=== PATIENT | male | born 1960 | race Hispanic/Latino ===

== ENCOUNTER 2022-12-09 10:30 | Observation (INO) | payer SELFPAY ==
[2022-12-09] MEDS ORDERED: Ondansetron PF 4 MG/2 ML Vial ONE ×2 (11:14→14:38)
[2022-12-09] MEDS ORDERED: Acetaminophen 500 MG TAB ONE (11:14)
[2022-12-09] MEDS ORDERED: Ketorolac Tromethamine 30 MG/ML VIAL ONE ×2 (11:14→14:38)
[2022-12-09] MEDS ORDERED: Cefepime 2 GM VIAL ONE (11:14)
[2022-12-09] MEDS ORDERED: Vancomycin 1.5 GRAM/300 ML BAG 1.5 GM in Premix Bag 1 BAG IVPB SCH (11:15)
[2022-12-09] MEDS ORDERED: Cefepime 2 GM in Sodium Chloride 0.9% 100 ML IVPB SCH (11:15)
[2022-12-09 11:17] LABS: #Monocytes 0.1 thou/uL (0.11-0.59); #Neutrophils 4.1 thou/uL (1.40-6.50); %Basophils 0.4 % (0.0-1.0); %Lymphocytes 12.3 % (21.0-51.0); %Monocytes 2.1 % (0.0-10.0); %Neutrophils 84.8 % (42.0-75.0); Hemoglobin 15.4 g/dL (14.0-18.0); Mean Corpuscular HGB CONC 34.2 g/dL (32.0-36.0); Mean Corpuscular Hemoglobin 29.2 pg (27.0-31.0); Mean Corpuscular Volume 85.4 fl (78.0-98.0); Mean Platelet Volume 9.6 fL (7.4-10.4); Platelet Count 217 10x3/uL (130-400); RBC Distribution Width 12.9 % (11.5-14.5); Red Blood Cell (RBC) Count 5.27 mill/uL (4.70-6.10); White Blood Cell (WBC) Count 4.9 10x3/uL (4.8-10.8)
[2022-12-09 11:28] LABS: INR-International Normal Ratio 1.1; PTT 29.6 sec (22.9-36.1); Prothrombin Time 14.8 sec (12.0-14.7)
[2022-12-09 11:50] LABS: ALT (SGPT) 30 U/L (8-55); AST (SGOT) 33 U/L (5-34); Albumin 4.1 g/dL (3.5-5.0); Alkaline Phosphatase 71 U/L (40-110); Anion Gap 21 mmol/L (10-20); BUN (Urea Nitrogen) 15 mg/dL (8.4-25.7); Bilirubin, Total 0.8 mg/dL (0.2-1.2); Calc. Creatinine Clearance 0 mL/min (70-130); Calcium 9.4 mg/dL (7.8-10.44); Carbon Dioxide 18 mmol/L (22-29); Chloride 97 mmol/L (98-107); Estimated GFR 67; Globulin 3.6 g/dL (2.4-3.5); Glucose 125 mg/dL (70-105); Lipase 24 U/L (8-78); Potassium 3.8 mmol/L (3.5-5.1); Protein, Total 7.7 g/dL (6.0-8.3); Sodium 132 mmol/L (136-145)
[2022-12-09 12:03] LABS: Bacteria/HPF None Seen HPF (None Seen); Bilirubin Negative (Negative); Blood, Urine Negative (Negative); CAUTI Indications for Culture Pelvic or flank pain; Clarity Clear (Clear); Glucose, Urine (Dipstick) Normal (Negative); Ketone, Urine Negative (Negative); Leukocyte Negative Leu/uL (Negative); Nitrite Negative (Negative); Protein, Urine (Dipstick) 50 mg/dL (Neg-Trace); RBC/HPF 0-3 HPF (0-3); Specific Gravity, Urine 1.029 (1.002-1.036); Squamous Epithelial 0-3 HPF (0-3); Urobilinogen Normal mg/dL (Less than 2); WBC/HPF 0-3 HPF (0-3); pH, Urine 5.5 (5.0-9.0)
[2022-12-09 12:08] LABS: Urine Culture Reflex No No
[2022-12-09] MEDS ORDERED: Sodium Chloride 0.9% 1,000 ML IV SCH (12:30)
[2022-12-09] MEDS ORDERED: hydrALAZINE 20 MG/ML VIAL SLOW IVP PRN (12:34)
[2022-12-09] MEDS ORDERED: Ipratropium/Albuterol 3 ML NEB NEB PRN (12:34)
[2022-12-09] MEDS ORDERED: Ondansetron PF 4 MG/2 ML Vial IVP PRN (12:34)
[2022-12-09] MEDS ORDERED: Acetaminophen 325 MG TAB PO SCH (12:45)
[2022-12-09 13:14] LABS: SARS-CoV-2 NAA Rapid Test Not Detected (NotDetected)
[2022-12-09] MEDS ORDERED: fentaNYL PF 100 MCG/2 ML SYRINGE ONE ×2 (13:48→17:02)
[2022-12-09] MEDS ORDERED: Norepinephrine 4 MG/4 ML VIAL ONE (13:48)
[2022-12-09] MEDS ORDERED: SUGAMMADEX SODIUM 200 MG/2 ML VIAL ONE (13:48)
[2022-12-09] MEDS ORDERED: ePHEDrine Sulfate 50 MG/10 ML VIAL ONE (14:38)
[2022-12-09] MEDS ORDERED: Dexamethasone 20 MG/5 ML VIAL ONE (14:38)
[2022-12-09] MEDS ORDERED: Succinylcholine 200 MG/10 ml SYRINGE FS ONE (14:38)
[2022-12-09] MEDS ORDERED: Rocuronium Bromide 10 MG/ML (10ML VIAL) ONE (14:38)
[2022-12-09] MEDS ORDERED: PHENYLEPHRINE-NS 100 MCG/ML 10 ML SYRINGE ONE (14:38)
[2022-12-09] MEDS ORDERED: Promethazine HCl 25 MG/ML VIAL IM PRN (16:58)
[2022-12-09] MEDS ORDERED: Ondansetron HCl/PF 4 MG/2 ML Vial IVP PRN (16:58)
[2022-12-09] MEDS ORDERED: HYDROmorphone 2 MG/ML VIAL SLOW IVP PRN (16:58)
[2022-12-09] MEDS ORDERED: Albumin 5% 500 ML ONE (17:51)
[2022-12-09 17:59] LABS: Lactic Acid 1.3 mmol/L (0.5-2.2)
[2022-12-09] MEDS ORDERED: fentaNYL 50 mcg/mL 1 mL Vial ONE (18:58)
[2022-12-09] MEDS: Acetaminophen 325 MG TAB PO SCH (20:14)
[2022-12-09] MEDS: Sodium Chloride 0.9% 1,000 ML IV SCH ×2 (20:46→23:31)
[2022-12-09] MEDS: Cefepime 2 GM in Sodium Chloride 0.9% 100 ML IVPB SCH (20:47)
[2022-12-09 22:46] VITALS: BMI 32.9
[2022-12-10] MEDS: Acetaminophen 325 MG TAB PO SCH ×3 (01:35→10:52)
[2022-12-10] MEDS: Sodium Chloride 0.9% 1,000 ML IV SCH ×2 (05:38→15:34)
[2022-12-10 05:55] LABS: #Monocytes 0.4 thou/uL (0.11-0.59); #Neutrophils 6.7 thou/uL (1.40-6.50); %Monocytes 4.9 % (0.0-10.0); %Neutrophils 89.8 % (42.0-75.0); Mean Corpuscular HGB CONC 33.2 g/dL (32.0-36.0); Mean Corpuscular Hemoglobin 29.4 pg (27.0-31.0); Mean Platelet Volume 9.2 fL (7.4-10.4); Platelet Count 162 10x3/uL (130-400); RBC Distribution Width 13.2 % (11.5-14.5); Red Blood Cell (RBC) Count 4.05 mill/uL (4.70-6.10); White Blood Cell (WBC) Count 7.4 10x3/uL (4.8-10.8)
[2022-12-10 06:25] LABS: Anion Gap 13 mmol/L (10-20); BUN (Urea Nitrogen) 15 mg/dL (8.4-25.7); Calc. Creatinine Clearance 145 mL/min (70-130); Calcium 7.8 mg/dL (7.6-10.4); Carbon Dioxide 18 mmol/L (22-29); Chloride 107 mmol/L (98-107); Estimated GFR 104; Glucose 139 mg/dL (70-105); Sodium 134 mmol/L (136-145)
[2022-12-10 06:27] LABS: Hematocrit 35.8 % (42.0-52.0); Hemoglobin 11.9 g/dL (14.0-18.0); Mean Corpuscular Volume 88.4 fl (78.0-98.0)
[2022-12-10 09:40] LABS: ALT (SGPT) 51 U/L (8-55); AST (SGOT) 52 U/L (5-34); Albumin 3.2 g/dL (3.5-5.0); Alkaline Phosphatase 54 U/L (40-110); Bilirubin, Direct 0.3 mg/dL (0.1-0.3); Bilirubin, Total 0.5 mg/dL (0.2-1.2); Protein, Total 5.6 g/dL (6.0-8.3)
[2022-12-10] MEDS: Cefepime 2 GM in Sodium Chloride 0.9% 100 ML IVPB SCH (10:51)
[2022-12-10 16:52] VITALS: BP 108/70; TEMP 96.6
[2022-12-10] MEDS ORDERED: Ciprofloxacin 500 MG TAB PO SCH (20:00)
== END 2022-12-10 19:02 | disposition home or self-care (01) ==
LOC: ERS 10:30 → SJJU 13:45 → SDC/OP 13:50 → SJJU 20:10
PROVIDERS: ADMIT Surgery; ATTEND Surgery
PROC: 0FT44ZZ Resection of Gallbladder, Percutaneous Endoscopic Approach (ICD-10-PCS; principal; 2022-12-10)
PROC: BF03YZZ Plain Radiography of Gallbladder and Bile Ducts using Other Contrast (ICD-10-PCS; 2022-12-10)
DX: K80.12 Calculus of gallbladder with acute and chronic cholecystitis without obstruction (principal); K82.A1 Gangrene of gallbladder in cholecystitis; K66.0 Peritoneal adhesions (postprocedural) (postinfection)
CPT/HCPCS: 36415; 47532; 71045; 76705; 80048; 80053; 80076; 81001; 83605; 83690; 85025; 85610; 85730; 87040; 87070; 87077; 87149; 87186; 87205; 88304; 93005; C1713; C1889; J0692; J1100; J1885; J2405; J3010; J3370; J3490; J7050; P9045